=== PATIENT | female | born 2005 | race Caucasian/White ===

== ENCOUNTER 2024-12-30 11:43 | Outpatient (CLI) | payer OTHER, SELFPAY ==
--- NOTE | 2025-01-12 12:01 | W.PM.SLEEP ---
Sleep Study Details Details Interpreting Provider: Dinorah Date of Sleep Study: 12/30/24 Sleep Study Details: STUDY TYPE:? Home unattended ? BMI:? 40.5 ORDERING PROVIDER:Elvira Copeland INDICATION:? Concerned about sleep apnea ? SLEEP SUMMARY:? 260 minutes monitored RESPIRATORY SUMMARY:? AHI 3.7 Low oxygen 91 Snoring 100% PERIODIC LIMB MOVEMENTS OF SLEEP:? Not recorded CARDIAC:? Range 60-105, mean 77.3 IMPRESSION:? This study does not demonstrate clinically significant obstructive sleep apnea. It should be verified the patient slept well during the study. RECOMMENDATION: If sleep disorder is strongly suspected would recommend a repeat study in the lab.
== END 2024-12-30 11:44 | disposition home or self-care (01) ==
LOC: SLEEP 11:44
PROVIDERS: PCP Family Medicine; Visit Provider Otolaryngology
DX: G47.30 Sleep apnea, unspecified (principal); G47.10 Hypersomnia, unspecified; R06.83 Snoring
CPT/HCPCS: 95806